=== PATIENT | male | born 1970 | race Caucasian/White ===

== ENCOUNTER 2020-08-18 20:58 | Emergency (ER) | payer OTHER ==
[~2020-08-18] VITALS: Ht 175.3 cm; Wt 97.5 kg
[2020-08-18] MEDS ORDERED: CEPHALEXIN500 MG PO ×2 (21:15→21:46)
[2020-08-18 21:52] VITALS: BP 142/89
== END 2020-08-18 21:52 | disposition home or self-care (01) ==
LOC: M.ERS 20:58
DX: S51.812A Laceration without foreign body of left forearm, initial encounter (principal); E78.00 Pure hypercholesterolemia, unspecified; F17.210 Nicotine dependence, cigarettes, uncomplicated; W01.0XXA Fall on same level from slipping, tripping and stumbling without subsequent striking against object, initial encounter; Y93.89 Activity, other specified; Y92.89 Other specified places as the place of occurrence of the external cause; Y99.8 Other external cause status